=== PATIENT | female | born 1955 | race Two or more races ===

== ENCOUNTER 2017-04-30 17:06 | Emergency (ER) | payer SELFPAY ==
[~2017-04-30] VITALS: Ht 154.9 cm; Wt 70.8 kg
--- NOTE | 2017-04-30 17:38 | Emergency Room Report ---
History of Present Illness General Chief Complaint: Multiple Trauma/Fall Source: Patient Present Illness HPI 61-year-old female no significant past medical history p/w syncopal episode. Patient states that she was at her house, she suddenly felt lightheaded and dizzy, fell onto her right side. Patient was supine/sitting/standing. Denies head trauma, unknown amount of LOC Pt states feeling lightheadedness/nauseous before event. Denies sob, palpitations, or chest pain before event. There was no seizure like activity, tongue biting, urinary incontinence, blurry vision, or HOPPER. Pt has been eating/drinking well. This is the first episode of syncope. Denies recent fever, chills, n/v/d. She is now complaining of mild left-sided shoulder pain, sustained an abrasion to her right knee, however able to move everything without difficulty Tetanus is not up-to-date Allergies: Coded Allergies: No Known Allergies (Unverified , 04/30/17) Patient History Past Medical History: see triage record Past Surgical History: none Pertinent Family History: none Reviewed Nursing Documentation: PMH: Agreed, PSxH: Agreed Nursing Documentation-PMH Hx Cardiac Problems: No Hx Hypertension: No Review of Systems All Other Systems: negative except mentioned in HPI Physical Exam Vital Signs Date Time Temp Pulse Resp B/P (MAP) Pulse Ox O2 Delivery O2 Flow Rate FiO2 04/30/17 17:10 98.4 80 14 136/87 95 Sp02 EP Interpretation: reviewed, normal General Appearance: normal inspection, well appearing, no apparent distress, alert, GCS 15, non-toxic Head: normocephalic, atraumatic Eyes: bilateral eye normal inspection, bilateral eye PERRL, bilateral eye EOMI ENT: normal ENT inspection, normal pharynx, normal voice, moist mucus membranes Neck: normal inspection, full range of motion, supple Respiratory: normal inspection, lungs clear, normal breath sounds, no respiratory distress, no retraction, no wheezing, speaking full sentences, chest symmetrical Cardiovascular #1: normal inspection, regular rate, rhythm, no edema, normal capillary refill Cardiovascular #2: 2+ radial (R), 2+ radial (L) Gastrointestinal: normal inspection, non tender, soft, non-distended, no guarding Musculoskeletal: normal inspection, back normal, normal range of motion, non- tender Neurologic: normal inspection, alert, oriented x3, responsive, motor strength/ tone normal, sensory intact, normal gait, speech normal Psychiatric: normal inspection, judgement/insight normal, memory normal Skin: warm/dry, well hydrated, normal turgor, other - superficial abrasion R knee Medical Decision Making Diagnostic Impression: Primary Impression: Syncope Additional Impression: Abrasion ER Course 61-year-old female with syncopal episode DDX: Vasovagal vs. orthostatic / hypovolemic/dehydration vs. cardiac arrhythmia (SVT , Afib) vs. cardiac (, ACS) vs. PE vs. metabolic (hypoglycemia, hypoxia), vs neuro (seizure, CVA, intracranial bleed) Plan: bgm, cbc, bmp, ekg, cxr ER course: Patient has remained stable during ED stay. conversing with daughter, ambulating wo difficulty No further syncopal episodes Labs unremarkable Disposition: Patient will be discharged to home. Followup with primary care doctor within one week. Please note that this Emergency Department Report was dictated using [employer] marketing analyst technology software, occasionally this can lead to erroneous entry secondary to interpretation by the dictation equipment EKG Diagnostic Results EP Interpretation: Yes Rate: normal Rhythm: NSR ST Segments: No acute changes, no WPW, Brugada, QT prolongation ASA given to patient: No Rhythm Strip EP Interpretation: Yes Rate: [ ] Rhythm: NSR, no PVCs, no ectopy Chest X-ray CXR: Ordered: Yes 1 view Indication: Syncope EP interpretation: Yes Interpretation: No consolidation, no effusion, no PTX, no acute cardiopulmonary disease Impression: No acute disease Electronically signed by Brian Pace MD Laboratory Tests Test 04/30/17 17:44 White Blood Count 8.8 K/UL (4.8-10.8) Red Blood Count 4.80 M/UL (4.20-5.40) Hemoglobin 14.0 G/DL (12.0-16.0) Hematocrit 43.8 % (37.0-47.0) Mean Corpuscular Volume 91 FL (80-99) Mean Corpuscular Hemoglobin 29.2 PG (27.0-31.0) Mean Corpuscular Hemoglobin Concent 32.1 G/DL (32.0-36.0) Red Cell Distribution Width 12.8 % (11.6-14.8) Platelet Count 451 K/UL (150-450) H Mean Platelet Volume 5.5 FL (6.5-10.1) L Neutrophils (%) (Auto) 56.1 % (45.0-75.0) Lymphocytes (%) (Auto) 33.8 % (20.0-45.0) Monocytes (%) (Auto) 7.2 % (1.0-10.0) Eosinophils (%) (Auto) 1.6 % (0.0-3.0) Basophils (%) (Auto) 1.3 % (0.0-2.0) Urine Color Pale yellow Urine Appearance Clear Urine pH 6 (4.5-8.0) Urine Specific [place] 1.005 (1.005-1.035) Urine Protein Negative (NEGATIVE) Urine Glucose (UA) Negative (NEGATIVE) Urine Ketones Negative (NEGATIVE) Urine Occult Blood Negative (NEGATIVE) Urine Nitrite Negative (NEGATIVE) Urine Bilirubin Negative (NEGATIVE) Urine Urobilinogen Normal MG/DL (0.0-1.0) Urine Leukocyte Esterase Negative (NEGATIVE) Sodium Level 140 MMOL/L (136-145) Potassium Level 3.8 MMOL/L (3.5-5.1) Chloride Level 103 MMOL/L (98-107) Carbon Dioxide Level 28 MMOL/L (21-32) Anion Gap 9 mmol/L (5-15) Blood Urea Nitrogen 12 mg/dL (7-18) Creatinine 0.8 MG/DL (0.55-1.30) Estimate Glomerular Filtration Rate > 60 mL/min (>60) Glucose Level 93 MG/DL (74-106) Calcium Level 7.8 MG/DL (8.5-10.1) L Total Bilirubin 0.3 MG/DL (0.2-1.0) Aspartate Amino Transferase (AST) 21 U/L (15-37) Alanine Aminotransferase (ALT) 17 U/L (12-78) Alkaline Phosphatase 79 U/L (46-116) Troponin I 0.000 ng/mL (0.000-0.056) Total Protein 8.0 G/DL (6.4-8.2) Albumin 3.7 G/DL (3.4-5.0) Globulin 4.3 g/dL Albumin/Globulin Ratio 0.9 (1.0-2.7) L Last Vital Signs Date Time Temp Pulse Resp B/P (MAP) Pulse Ox O2 Delivery O2 Flow Rate FiO2 04/30/17 17:10 98.4 80 14 136/87 95 Disposition: HOME, SELF-CARE Condition: Improved Patient Instructions: Syncope, [id number] Additional Instructions: PLS FOLLOW UP WITH YOUR DOCTOR IN 1 WEEK Brian Pace M.D. Apr 30, 2017 17:38
[2017-04-30 18:03] LABS: APPEARANCE,URINE CLEAR; BILIRUBIN, URINE NEGATIVE (NEGATIVE); COLOR,URINE PALE YELLOW; GLUCOSE, URINE (UA) NEGATIVE (NEGATIVE); KETONES,URINE NEGATIVE (NEGATIVE); LEUKOCYTE ESTERASE ,URINE NEGATIVE (NEGATIVE); NITRITE,URINE NEGATIVE (NEGATIVE); PH,URINE 6 (4.5-8.0); PROTEIN,URINE NEGATIVE (NEGATIVE); UROBILINOGEN,URINE NORMAL MG/DL (0.0-1.0)
[2017-04-30 18:06] LABS: BASOPHILS % (AUTO) 1.3 % (0.0-2.0); EOSINOPHILS % (AUTO) 1.6 % (0.0-3.0); HEMATOCRIT 43.8 % (37.0-47.0); LYMPHOCYTES % (AUTO) 33.8 % (20.0-45.0); MEAN CORPUSCULAR VOLUME 91 FL (80-99); MONOCYTES % (AUTO) 7.2 % (1.0-10.0); NEUTROPHILS % (AUTO) 56.1 % (45.0-75.0); PLATELET COUNT 451 K/UL (150-450); RED CELL DISTRIBUTION WIDTH 12.8 % (11.6-14.8); WHITE BLOOD COUNT 8.8 K/UL (4.8-10.8)
[2017-04-30 18:18] LABS: ANION GAP 9 mmol/L (5-15); BLOOD UREA NITROGEN 12 mg/dL (7-18); CALCIUM 7.8 MG/DL (8.5-10.1); CARBON DIOXIDE 28 MMOL/L (21-32); CHLORIDE 103 MMOL/L (98-107); CREATININE 0.8 MG/DL (0.55-1.30); POTASSIUM 3.8 MMOL/L (3.5-5.1); SODIUM 140 MMOL/L (136-145)
[2017-04-30 18:21] LABS: ALANINE AMINOTRANSFERASE 17 U/L (12-78); ALBUMIN 3.7 G/DL (3.4-5.0); ALBUMIN/GLOBULIN RATIO 0.9 (1.0-2.7); ALKALINE PHOSPHATASE 79 U/L (46-116); ASPARTATE AMINO TRANSFERASE 21 U/L (15-37); BILIRUBIN,TOTAL 0.3 MG/DL (0.2-1.0)
[2017-04-30 18:53] VITALS: BP 136/87
--- NOTE | 2017-05-01 12:50 | Diagnostic Imaging Report ---
Indication: Chest pain Comparison: None A single view chest radiograph was obtained. Findings: Cardiomediastinal appearance is within normal limits for age. Pulmonary vascularity is appropriate. The diaphragmatic contour is smooth and costophrenic angles are sharp. No pleural effusions are identified. The bones are osteopenic. Suture anchors from previous rotator cuff repair noted on the right shoulder. Impression: No acute findings
== END 2017-04-30 18:53 | disposition home or self-care (01) ==
LOC: EMR 17:30
DX: R55 Syncope and collapse (principal); S80.211A Abrasion, right knee, initial encounter; W19.XXXA Unspecified fall, initial encounter; Y92.9 Unspecified place or not applicable; R07.9 Chest pain, unspecified
CPT/HCPCS: 36415; 71045; 80053; 81003; 82962; 84484; 85025; 99284

== ENCOUNTER 2017-10-31 01:41 | Emergency (ER) | payer OTHER ==
[~2017-10-31] VITALS: Ht 154.9 cm; Wt 71.7 kg
[2017-10-31 02:31] VITALS: BP 135/76
[2017-10-31] MEDS ORDERED: TAMSULOSIN HCL0.4 MG ORAL (03:49)
[2017-10-31 04:09] VITALS: BP 135/76
--- NOTE | 2017-11-01 02:25 | Emergency Room Report ---
History of Present Illness General Chief Complaint: Abdominal Pain Source: Patient Present Illness HPI Patient presents with complaints of urinary retention Reports that she had recent back surgery at [facility] Was not able to provide the specific name of the type of surgery Patient was discharged yesterday however over the past 8 hours was not able to urinate And now feels increased pain and pressure building the bladder and abdominal area Feels significantly bloated and has 10 out of 10 pain Allergies: Coded Allergies: No Known Allergies (Unverified , 04/30/17) Patient History Past Medical History: see triage record Pertinent Family History: none Reviewed Nursing Documentation: PMH: Agreed; PSxH: Agreed Nursing Documentation-PMH Hx Hypertension: No Review of Systems All Other Systems: negative except mentioned in HPI Physical Exam Vital Signs Date Time Temp Pulse Resp B/P (MAP) Pulse Ox O2 Delivery O2 Flow Rate FiO2 10/31/17 02:09 97.8 88 18 135/76 95 Room Air 97.9 Sp02 EP Interpretation: reviewed, normal General Appearance: moderate distress - In acute pain Head: normocephalic, atraumatic Eyes: bilateral eye PERRL, bilateral eye EOMI ENT: normal pharynx Neck: supple, thyroid normal Respiratory: lungs clear, normal breath sounds Cardiovascular #1: regular rate, rhythm, no edema Gastrointestinal: other - Distended bladder tender Genitourinary: no CVA tenderness Musculoskeletal: other - 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 Neurologic: alert, oriented x3, other - Still has residual discomfort and weakness in both of her legs from recent surgery Skin: normal color, no rash Lymphatic: no adenopathy Medical Decision Making Diagnostic Impression: Primary Impression: urinary retention ER Course Patient has Duncan catheter placed with significant improvement in over 800 mL of urine output After the Duncan catheter patient has complete resolution of her discomfort Duncan catheter will remain in place patient was given prescription for Flomax And will be seeing her neurosurgeon tomorrow for close outpatient follow-up Last Vital Signs Date Time Temp Pulse Resp B/P (MAP) Pulse Ox O2 Delivery O2 Flow Rate FiO2 10/31/17 04:09 88 14 135/76 95 Room Air 10/31/17 02:31 97.9 97.9 Status: improved Disposition: HOME, SELF-CARE Condition: Improved Scripts Tamsulosin Hcl (TAMSULOSIN HCL*) 0.4 Mg Cap.er.24h 0.4 MG ORAL BEDTIME, #10 CAP Prov: Zonia Le DO 10/31/17 Referrals: [facility],REFERRING (PCP) Patient Instructions: Acute Urinary Retention, Female Additional Instructions: Please call your surgeon tomorrow for close follow-up in the next one to 2 days Zonia Le DO Nov 01, 2017 02:25
== END 2017-10-31 04:09 | disposition home or self-care (01) ==
LOC: EMR 02:25
DX: R33.9 Retention of urine, unspecified (principal); Z98.890 Other specified postprocedural states; I10 Essential (primary) hypertension
CPT/HCPCS: 99283

== ENCOUNTER 2019-04-05 12:21 | Emergency (ER) | payer OTHER ==
[~2019-04-05] VITALS: Ht 154.9 cm; Wt 73.9 kg
[~2019-04-05 12:21] MED LIST: TAMSULOSIN HCL0.4 MG ORAL
[2019-04-05] MEDS ORDERED: CYCLOBENZAPRINE10 MG ORAL (12:37)
[2019-04-05] MEDS ORDERED: HYDROcodone/Acetamin 5/325 tab ORAL ONE (13:00)
--- NOTE | 2019-04-05 13:15 | NUR ---
ED Nurse Note:pt. c/o right knee pain after she fell this morning, has small skin skrape on right elbow
[2019-04-05 13:41] VITALS: BP 122/81
--- NOTE | 2019-04-05 13:57 | Emergency Room Report ---
History of Present Illness General Chief Complaint: Multiple Trauma/Fall Source: Patient Present Illness HPI 63 YO Female presents to the ED C/o 01/30 in severity right knee pain and swelling as well as tailbone pain s/p mechanical slip and fall down 3 stairs this am. Pt. reports swelling was delayed. Pain medially. Pt. able to bear weight with exacerbation of her pain. She denies bruises, erythema, open wounds or bleeding. Pt. denies instability. She denies midline neck or low back pain. Pt. with hx of lumbar spinal surgery. She denies hitting her head. Denies numbness tingling or loss of sensation or gross motor movements of the extremities, incontinence of bowel or bladder. Denies CP, Palpitations, LOC, AMS , dizziness, Changes in Vision, weakness or a sudden severe headache. Allergies: Coded Allergies: No Known Allergies (Unverified , 04/30/17) Patient History Past Medical History: see triage record Past Surgical History: none Pertinent Family History: none Now: No Reviewed Nursing Documentation: PMH: Agreed; PSxH: Agreed Nursing Documentation-PMH Past Medical History: No History, Except For Hx Hypertension: No Review of Systems All Other Systems: negative except mentioned in HPI Physical Exam Vital Signs Date Time Temp Pulse Resp B/P (MAP) Pulse Ox O2 Delivery O2 Flow Rate FiO2 04/05/19 12:31 98.1 82 18 122/81 (95) 98 Room Air Sp02 EP Interpretation: reviewed, normal General Appearance: no apparent distress, alert, GCS 15, non-toxic Head: normocephalic, atraumatic Eyes: bilateral eye normal inspection, bilateral eye PERRL ENT: hearing grossly normal, normal voice Neck: full range of motion, no bony tend Respiratory: lungs clear, normal breath sounds, speaking full sentences Cardiovascular #1: regular rate, rhythm Musculoskeletal: normal range of motion, gait/station normal, non-tender, tender - Tailbone tenderness. ttp to anteriomedial right knee, there is visible swelling. There is no significant increase in laxity of the joint. Negative ant. and post. drawer signs. No spinous process ttp or step-off of the C,T or L spine. there is midline tailbone ttp. no bruises noted. Neurologic: alert, motor strength/tone normal, oriented x3, sensory intact, responsive, speech normal Psychiatric: judgement/insight normal Skin: normal color, normal inspection Medical Decision Making PA Attestation Dr. Jacobs is my supervising Physician whom patient management has been discussed with. Diagnostic Impression: Primary Impression: Right knee sprain Qualified Codes: S83.91XA - Sprain of unspecified site of right knee, initial encounter Additional Impression: Coccyx contusion Qualified Codes: S30.0XXA - Contusion of lower back and pelvis, initial encounter ER Course 63 YO Female presents to the ED C/o 01/30 in severity right knee pain and swelling as well as tailbone pain s/p mechanical slip and fall down 3 stairs this am. Pt. reports swelling was delayed. Pain medially. Pt. able to bear weight with exacerbation of her pain. She denies bruises, erythema, open wounds or bleeding. Pt. denies instability. She denies midline neck or low back pain. Pt. with hx of lumbar spinal surgery. She denies hitting her head. Denies numbness tingling or loss of sensation or gross motor movements of the extremities, incontinence of bowel or bladder. Denies CP, Palpitations, LOC, AMS , dizziness, Changes in Vision, weakness or a sudden severe headache. Ddx considered but are not limited to Fracture, dislocation, contusion, Sprain/ Strain/Spasm Vital signs: are WNL, pt. is afebrile H&PE are most consistent with musculoskeletal injury will perform imaging to r/ o fractures/dislocations. NO evidence of cauda equina syndrome. ORDERS: - X-ray Right knee and sacrum/coccyx - negative for fx, Dislocation, or significant soft tissue injury, per preliminary read in ED, and signed by PRASAD Wei, my supervising physician has reviewed, and agrees with my interpretation. ED INTERVENTIONS: - [place] PO --Knee Immobilizer splint applied to the right Knee by data acquisition technician. Pt. remains neurovascularly intact. --Patient is provided with crutches and instructed on their use DISCHARGE: At this time pt. is stable for d/c to home. Will provide printed patient care instructions, and any necessary prescriptions. Care plan and follow up instructions have been discussed with the patient prior to discharge. Other X-Ray Diagnostic Results Other X-Ray Diagnostic Results #1: X-Ray ordered: Right knee # of Views/Limited Vs Complete: 3 View Indication: Pain EP Interpretation: Yes PA Xray: Interpretation reviewed, by supervising MD, and agrees with findings. Interpretation: no dislocation, no soft tissue swelling, no fractures Impression: No acute disease Electronically Signed by: Francisca Wei PA-C Other X-Ray Diagnostic Results #2: X-Ray ordered: Sacrum/coccyx # of Views/Limited Vs Complete: 2 View Indication: Pain EP Interpretation: Yes PA Xray: Interpretation reviewed, by supervising MD, and agrees with findings. Interpretation: no dislocation, no soft tissue swelling, no fractures Impression: No acute disease Electronically Signed by: Francisca Wei PA-C Last Vital Signs Date Time Temp Pulse Resp B/P (MAP) Pulse Ox O2 Delivery O2 Flow Rate FiO2 04/05/19 13:41 98.1 82 18 122/81 98 Room Air Disposition: HOME, SELF-CARE Condition: Stable Scripts Hydrocodone Bit/Acetaminophen 5-325* (NORCO 5-325*) 1 Each Tablet 1 TAB ORAL Q6H PRN for For Pain, #12 TAB 0 Refills Prov: Francisca Wei 04/05/19 Ibuprofen* (MOTRIN*) 600 Mg Tablet 600 MG ORAL THREE TIMES A DAY, #30 TAB 0 Refills Prov: Francisca Wei 04/05/19 Referrals: NON PHYSICIAN (PCP) Patient Instructions: Combined Knee Ligament Sprain, Tailbone Injury, Easy-to- Read Additional Instructions: Take medications as directed. Follow up with an [facility] in 3-5 days, even if your symptoms have resolved. If symptoms persist MRI may be required at the discretion of your PCP or Ortho Specialist. --Please review list of primary care clinics, if you do not already have a primary care provider who can give you an Orthopedic Referral. Return sooner to ED if new symptoms occur, or current symptoms become worse. Do not drink alcohol, drive, or operate heavy machinery while taking [place] as this may cause drowsiness. - Please note that this Emergency Department Report was dictated using [employer] buffer technology software, occasionally this can lead to erroneous entry secondary to interpretation by the dictation equipment. Francisca Wei Apr 05, 2019 13:57
[2019-04-05] MEDS ORDERED: NORCO 5-325 TA1 EACH ORAL ×2 (13:58)
[2019-04-05] MEDS ORDERED: IBUPROFEN600 MG ORAL (13:58)
--- NOTE | 2019-04-05 14:20 | NUR ---
ER DISCHARGE NOTE: Patient is cleared to be discharged per ERMD, pt is aox4, on room air, with stable vital signs. pt was given dc and prescription instructions, pt was able to verbalize understanding, pt is able to ambulate with cane. pt took all belongings.
[2019-04-05 14:22] VITALS: BP 122/81
--- NOTE | 2019-04-05 14:23 | Diagnostic Imaging Report ---
EXAM: XR Sacrum and Coccyx, 2 or more Views CLINICAL HISTORY: PAIN TECHNIQUE: Frontal and lateral views of the sacrum and coccyx. COMPARISON: No relevant prior studies available. FINDINGS: Sacrum/coccyx: Limited study. AP view limited due to overlying bowel. Limited evaluation of the sagittal view due to poor x-ray penetration. Vertebrae: Visualized lumbar vertebrae are unremarkable. Disc spaces: Mild degenerative changes lower lumbar spine. Soft tissues: Unremarkable. IMPRESSION: Limited study. AP view limited due to overlying bowel. Limited evaluation of the sagittal view due to poor x-ray penetration.
--- NOTE | 2019-04-05 14:27 | Diagnostic Imaging Report ---
EXAM: XR Right Knee, 3 Views CLINICAL HISTORY: PAIN TECHNIQUE: Three views of the right knee. COMPARISON: No relevant prior studies available. FINDINGS: Bones/joints: Small to moderate suprapatellar osteophyte. Small tibial spine osteophyte. Mild tibial spine osteophyte. No joint effusion. Mild tricompartment joint space narrowing. No acute fracture. No dislocation. Soft tissues: Unremarkable. IMPRESSION: 1. No acute process. 2. Small to moderate suprapatellar osteophyte.
== END 2019-04-05 14:23 | disposition home or self-care (01) ==
LOC: EMR 13:38
DX: S83.91XA Sprain of unspecified site of right knee, initial encounter (principal); S30.0XXA Contusion of lower back and pelvis, initial encounter; W01.0XXA Fall on same level from slipping, tripping and stumbling without subsequent striking against object, initial encounter; Y92.9 Unspecified place or not applicable
CPT/HCPCS: 29505; 72220; 99284

== ENCOUNTER 2020-02-11 23:27 | Emergency (ER) | payer OTHER ==
[~2020-02-11] VITALS: Ht 154.9 cm; Wt 72.6 kg
[~2020-02-11 23:27] MED LIST changes: +CYCLOBENZAPRINE10 MG ORAL; +IBUPROFEN600 MG ORAL; +NORCO 5-325 TA1 EACH ORAL
[2020-02-11 23:56] VITALS: BP 146/86
--- NOTE | 2020-02-12 00:11 | Emergency Room Report ---
History of Present Illness General Chief Complaint: Back Pain-No Injury Source: Patient Present Illness HPI 64-year-old female with no significant past medical history. She presents with chief complaint of back pain. She checked in because she brought her who had Covid and had myalgia and congestion. Patient said that she has some mild tightness in her right upper back. Since she is here she went to be checked out. No fever chills but no cough congestion. Denies any other complaint. Nothing made it better. Inspiration and movement made it worse. Pain is 5 out of 10. 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 COVID-19 Screening: Positive COVID-19 COVID-19 Testing Source: [place] Patient History Past Medical History: see triage record, old chart reviewed Past Surgical History: other Pertinent Family History: none Social History: Denies: smoking Now: No : 5 Para: 5 Reviewed Nursing Documentation: PMH: Agreed; PSxH: Agreed Nursing Documentation-PMH Past Medical History: No Stated History Hx Hypertension: No Review of Systems Eye: Denies: eye pain, blurred vision ENT: Denies: ear pain, nose congestion, throat swelling Respiratory: Denies: cough, shortness of breath Cardiovascular: Denies: chest pain, palpitations Gastrointestinal: Denies: abdominal pain, diarrhea, nausea, vomiting Musculoskeletal: Reports: back pain; Denies: joint pain Skin: Denies: rash Neurological: Denies: headache, numbness Endocrine: Denies: increased thirst, increased urine Hematologic/Lymphatic: Denies: easy bruising All Other Systems: negative except mentioned in HPI Physical Exam Vital Signs Date Time Temp Pulse Resp B/P (MAP) Pulse Ox O2 Delivery O2 Flow Rate FiO2 02/11/20 23:46 98.1 70 17 146/86 (106) 96 Room Air Vitals unremarkable Sp02 EP Interpretation: reviewed, normal General Appearance: well appearing, no apparent distress, alert Head: normocephalic, atraumatic Eyes: bilateral eye PERRL, bilateral eye EOMI ENT: hearing grossly normal, normal pharynx Neck: full range of motion, supple, no meningismus Respiratory: chest non-tender, lungs clear, normal breath sounds Cardiovascular #1: regular rate, rhythm, no murmur Gastrointestinal: normal bowel sounds, non tender, no mass, no organomegaly, no bruit, non-distended Musculoskeletal: back normal, normal range of motion, gait/station normal Psychiatric: mood/affect normal Medical Decision Making Diagnostic Impression: Primary Impression: Back pain Qualified Codes: M54.6 - Pain in thoracic spine Additional Impression: Close exposure to COVID-19 virus ER Course This patient presents with back pain. This may be musculoskeletal or very early infection of Covid as her is positive. She looks well. No evidence of cauda equina syndrome, spinal epidural abscess or neoplastic process. No rest or distress. Last Vital Signs Date Time Temp Pulse Resp B/P (MAP) Pulse Ox O2 Delivery O2 Flow Rate FiO2 02/11/20 23:46 98.1 70 17 146/86 (106) 96 Room Air Status: unchanged Disposition: HOME, SELF-CARE Condition: Stable Referrals: [facility],REFERRING (PCP) Patient Instructions: Back Pain, Adult Additional Instructions: May take Motrin or Tylenol for pain. Follow-up with your doctor in 7 days. Wear your mask. Social distancing. Return if worse. Pedro Cedillo MD Feb 12, 2020 00:11
[2020-02-12 00:21] VITALS: BP 142/79
== END 2020-02-12 00:21 | disposition home or self-care (01) ==
LOC: EMR 23:49
DX: M54.6 Pain in thoracic spine (principal); Z20.828 Contact with and (suspected) exposure to other viral communicable diseases
CPT/HCPCS: 99281